=== PATIENT | male | born 1960 | race Two or more races ===

== ENCOUNTER 2018-03-15 18:58 | Emergency (ER) | payer OTHER ==
[~2018-03-15] VITALS: Ht 177.8 cm; Wt 100.0 kg
[~2018-03-15 18:58] MED LIST: CALCIUM CHLORIDE 1GM/10ML SYR IV ONE; DEXTROSE 50% WATER 50ML SYRINGE IV ONE; EPINEPHRINE 0.1MG/ML (1:10,000) 10ML SYR ONE; MAGNESIUM SULFATE 4G IN WATER 100ML PREMIX IV ONE; SODIUM BICARBONATE 7.5% 0.9 MEQ/ML 50ML SYR IV ONE
[2018-03-15 19:00] VITALS: BP 0/0
== END 2018-03-15 19:08 | disposition expired ==
LOC: ER 18:58 → EDBD 18:58 → ER 19:08
DX: I46.9 Cardiac arrest, cause unspecified (principal); E11.9 Type 2 diabetes mellitus without complications; I51.9 Heart disease, unspecified
CPT/HCPCS: 31500; 92950; 99285; J3475; J3490